=== PATIENT | female | born 2000 | race African-American/Black ===

== ENCOUNTER → 2024-08-04 11:11 | Outpatient (REF) | payer OTHER, SELFPAY ==
[2024-08-04 14:04] LABS: Hepatitis B Surface Antibody Positive
[2024-08-06 10:51] LABS: Quantiferon Mitogen minus NIL 9.96 IU/mL; Quantiferon NIL 0.04 IU/mL; Quantiferon Plus TB2 minus NIL 0.01 IU/mL (<=0.34); Quantiferon TB Gold Plus Negative (Negative)
== END ==
LOC: OHS 11:11
PROVIDERS: ATTENDING PHYSICIAN Nurse Practitioner Family
DX: Z23 Encounter for immunization (principal)
CPT/HCPCS: 36415; 86480; 86706